=== PATIENT | female | born 1965 | race Caucasian/White ===

== ENCOUNTER 2019-05-19 11:14 | Emergency (ER) | payer MEDICAID ==
[~2019-05-19] VITALS: Ht 177.8 cm; Wt 136.1 kg
[~2019-05-19 11:14] MED LIST: Keflex500 MG PO; Zofran8 MG PO
[2019-05-19] MEDS ORDERED: Percocet 5-3251 EACH PO (12:47)
[2019-05-19] MEDS ORDERED: ALBU2.5V5 (12:47)
[2019-05-19] MEDS ORDERED: Prednisone20 MG PO (12:51)
== END 2019-05-19 13:08 | disposition home or self-care (01) ==
LOC: ER 11:14
DX: J45.901 Unspecified asthma with (acute) exacerbation (principal); Z87.891 Personal history of nicotine dependence; Z88.0 Allergy status to penicillin; Z79.899 Other long term (current) drug therapy; Z79.52 Long term (current) use of systemic steroids
CPT/HCPCS: 71046; 94640; 99283-25

== ENCOUNTER 2019-08-08 23:17 | Emergency (ER) | payer OTHER ==
[~2019-08-08] VITALS: Ht 180.3 cm; Wt 113.4 kg
[~2019-08-08 23:17] MED LIST changes: +ALBU2.5V5; +Percocet 5-3251 EACH PO; +Prednisone20 MG PO
[2019-08-09 00:24] LABS: BASOPHILS ABSOLUTE AUTO 0.06 K/mm3 (0.00-0.23); BASOPHILS PERCENT AUTO 1 % (0-2); EOSINOPHILS ABSOLUTE AUTO 0.17 K/mm3 (0.00-0.68); EOSINOPHILS PERCENT AUTO 2 % (0-6); Hematocrit 41.5 % (33.0-51.0); Hemoglobin 13.8 g/dL (11.5-16.0); IMMATURE GRAN ABSOLUTE AUTO 0.03 K/mm3 (0.00-0.10); IMMATURE GRAN PERCENT AUTO 0 % (0-1); LYMPHOCYTES ABSOLUTE AUTO 3.48 K/mm3 (0.84-5.20); LYMPHOCYTES PERCENT AUTO 34 % (21-46); MONOCYTES ABSOLUTE AUTO 0.59 K/mm3 (0.16-1.47); MONOCYTES PERCENT AUTO 6 % (4-13); Mean Corpuscular HGB 30.7 pg (26.0-34.0); Mean Corpuscular HGB Conc 33.3 g/dL (31.5-36.5); Mean Corpuscular Volume 92 fL (80-100); Mean Platelet Volume 9.2 fL (9.1-12.4); NEUTROPHILS ABSOLUTE AUTO 5.92 K/mm3 (1.96-9.15); NEUTROPHILS PERCENT AUTO 58 % (41-73); Platelet Count 355 K/mm3 (150-400); RDW Coefficient Variation 12.7 % (11.7-14.2); RDW Standard Deviation 43.4 fL (35.1-46.3); Red Blood Cell Count 4.49 M/mm3 (3.80-5.20); White Blood Cell Count 10.25 K/mm3 (4.00-11.30)
[2019-08-09 01:55] LABS: Alanine Aminotransfer (ALT/SGP 73 U/L (12-78); Albumin, Blood 3.7 g/dL (3.4-5.0); Alk Phos 182 U/L (50-136); Anion Gap 6 mmol/L (6-16); Aspartate Aminotrans (AST/SGOT 40 U/L (12-37); Bilirubin, Total 0.2 mg/dL (0.1-1.0); Blood Urea Nitrogen 19 mg/dL (8-24); Bun/Creatinine Ratio 26.1 (12.0-20.0); CO2, Blood 27 mmol/L (21-32); Chloride, Blood 108 mmol/L (98-108); Creatinine, Blood 0.73 mg/dL (0.40-1.00); Globulin, Blood 3.8 g/dL (2.2-4.0); Glomerular Filtration Rate >60 (60-); Glucose, Blood 170 mg/dL (70-99); Potassium, Blood 3.9 mmol/L (3.5-5.5); Sodium, Blood 141 mmol/L (136-145); Total Protein, Blood 7.5 g/dL (6.4-8.2)
[2019-08-09] MEDS ORDERED: ALBU90OI INH (03:33)
[2019-08-09] MEDS ORDERED: Prednisone20 MG PO (03:33)
== END 2019-08-09 03:45 | disposition home or self-care (01) ==
LOC: ER 23:17
PROVIDERS: Emergency Medicine
DX: J45.901 Unspecified asthma with (acute) exacerbation (principal); Z88.0 Allergy status to penicillin; Z87.891 Personal history of nicotine dependence
CPT/HCPCS: 36415; 71260; 80053; 83880; 84484; 85025; 85379; 93005; 93010; 93971; 94640; 99284-25; J7512; Q9967

== ENCOUNTER 2021-02-08 11:28 | Emergency (ER) | payer OTHER ==
[~2021-02-08] VITALS: Ht 177.8 cm; Wt 147.4 kg
[~2021-02-08 11:28] MED LIST changes: +ALBU90OI INH
[2021-02-08] MEDS ORDERED: Diflucan100 MG PO (12:22)
[2021-02-08] MEDS ORDERED: ALBU90OI INH (12:31)
== END 2021-02-08 12:33 | disposition home or self-care (01) ==
LOC: ER 11:28
DX: J45.909 Unspecified asthma, uncomplicated (principal); Z88.0 Allergy status to penicillin; Z79.52 Long term (current) use of systemic steroids; Z79.899 Other long term (current) drug therapy; Z87.891 Personal history of nicotine dependence
CPT/HCPCS: 71046; 99283-25; J1100